=== PATIENT | female | born 1940 | race Caucasian/White ===

== ENCOUNTER 2019-11-26 10:25 | Outpatient (CLI) | payer MEDICARE ==
--- NOTE | 2019-11-26 10:42 | RAD ---
EXAM: Chest 2 views: HISTORY: Dyspnea COMPARISON: None. FINDINGS: There is a normal-sized cardiomediastinal silhouette. The patient is status post sternotomy. The pac emaker is unchanged in position. There is no evidence of consolidation, mass, or pleural effusion. The bones are unremarkable. IMPRESSION: No evidence of acute cardiopulmonary disease
== END 2019-11-26 10:26 | disposition home or self-care (01) ==
LOC: RAD 10:25
PROVIDERS: ATTEND Internal Medicine
DX: R06.00 Dyspnea, unspecified (principal)
CPT/HCPCS: 71046